=== PATIENT | female | born 1955 | race Caucasian/White ===

== ENCOUNTER 2023-08-06 12:55 | Inpatient (IN) | payer MEDICARE, OTHER ==
[~2023-08-06] VITALS: Ht 157.5 cm; Wt 54.2 kg
[~2023-08-06 12:55] MED LIST: DOXY100C82 PO
[2023-08-06] MEDS ORDERED: TRIA37.577 PO (13:06)
[2023-08-06] MEDS ORDERED: AMLODIPINE-BENAZ PO (13:06)
[2023-08-06 14:37] LABS: VENOUS PH 7.364 UNITS (7.330-7.430)
[2023-08-06 14:38] LABS: VENOUS BASE EXCESS 0.6 (-2.0-2.0); VENOUS HCO3 26.4 MMOL/L (23.0-27.0); VENOUS O2 SATURATION 68.3 % (60.0-80.0); VENOUS PARTIAL PRESSURE CO2 47.3 mmHg (38.0-50.0); VENOUS PARTIAL PRESSURE O2 36.8 mmHg (30.0-50.0); VENOUS STANDARD HCO3 24.4 MMOL/L; VENOUS TOTAL CO2 27.8 MMOL/L (24.0-28.0)
[2023-08-06] MEDS ORDERED: ISOVUE-370 76% 100ML VIAL As Ordered ONE (14:52)
[2023-08-06 15:00] LABS: BASO % 0.2 % (0.0-1.0); EOS # 0.1 10^3/uL (0.0-0.5); EOS % 2.6 % (0.0-3.0); HEMATOCRIT 32.9 % (36.0-47.0); HEMOGLOBIN 10.8 g/dl (12.0-15.5); LYMPH # 0.7 10^3/uL (1.5-5.0); LYMPH % 15.2 % (24.0-44.0); MEAN CORPUSCULAR HEMOGLOBIN 34.4 pg (27.0-33.0); MEAN CORPUSCULAR HGB CONC 32.8 g/dl (32.0-36.5); MEAN CORPUSCULAR VOLUME 104.8 fl (80.0-96.0); MONO # 0.5 10^3/uL (0.0-0.8); MONO % 11.5 % (2.0-8.0); NEUTROPHILS # 3.2 10^3/uL (1.5-8.5); NEUTROPHILS % 70.1 % (36.0-66.0); RED BLOOD COUNT 3.14 10^6/uL (4.00-5.40); WHITE BLOOD COUNT 4.5 10^3/uL (4.0-10.0)
[2023-08-06 15:03] LABS: C REACTIVE PROTEIN QUANTITATIV < 0.40 MG/DL (<1.0); CK-MB VALUE MASS < 1.0 NG/ML (<3.6); INR 0.99; PROTHROMBIN TIME 12.8 SECONDS (12.5-14.5)
[2023-08-06 15:05] LABS: ALBUMIN 3.1 G/DL (3.2-5.2); ALKALINE PHOSPHATASE 52 U/L (46-116); ALT/SGPT 19 U/L (7.0-40); AST/SGOT 22 U/L (<34); BILIRUBIN,DIRECT 0.2 MG/DL (<0.4); BILIRUBIN,TOTAL 0.5 MG/DL (0.3-1.2); BLOOD UREA NITROGEN 23 MG/DL (9-23); CALCIUM LEVEL 8.4 MG/DL (8.3-10.6); CARBON DIOXIDE LEVEL 26 MMOL/L (20-31); CHLORIDE LEVEL 105 MMOL/L (98-107); CREATININE FOR GFR 0.86 MG/DL (0.55-1.30); GLOMERULAR FILTRATION RATE > 60.0 (>45); GLUCOSE, FASTING 99 MG/DL (74-106); POTASSIUM SERUM 4.3 MMOL/L (3.5-5.1); SODIUM LEVEL 135 MMOL/L (136-145); TOTAL PROTEIN 5.8 G/DL (5.7-8.2)
[2023-08-06 15:06] LABS: THYROID STIMULATING HORMONE 1.039 uIU/ML (0.55-4.78)
[2023-08-06 15:07] LABS: THYROXINE (T4) 10.3 UG/DL (4.5-10.9)
[2023-08-06 15:10] LABS: HCG, SERUM QUALITATIVE NEGATIVE (NEGATIVE)
[2023-08-06 15:11] LABS: PROCALCITONIN 0.11 ng/ml
[2023-08-06 15:13] LABS: CPK CREATINE PHOSPHOKINASE 46 U/L (34-145); MB/CK RELATIVE INDEX 2.17 (< OR =4)
[2023-08-06 15:29] LABS: IMMUNOGLOBULIN E 12.2 IU/ML (0-378)
[2023-08-06 15:33] LABS: CK-MB VALUE MASS < 1.0 NG/ML (<3.6); CPK CREATINE PHOSPHOKINASE 60 U/L (34-145); MB/CK RELATIVE INDEX 1.66 (< OR =4)
[2023-08-06 16:10] VITALS: O2SAT 94
[2023-08-06] MEDS: IPRATROPIUM 0.5MG/ALBUTEROL 2.5MG INH SOL UD 3ML (DUONEB) NEB ONE (16:10)
[2023-08-06] MEDS: methylPREDNISolone 125MG 2ML VIAL IV ONE (16:29)
[2023-08-06] MEDS: cefTRIAXone SOD 1 GM in D5W MINI-BAG PLUS 50 ML IV ONE (16:31)
[2023-08-06] MEDS: AZITHROMYCIN INJ 500 MG, VIAL MATE ADAPTER 1 EACH in NS 250 ML IV ONE (17:18)
[2023-08-06] MEDS ORDERED: TRIA37.5 PO (17:31)
[2023-08-06] MEDS ORDERED: LOTR10CA PO (17:31)
[2023-08-06] MEDS ORDERED: HOME MED LIST COMPLETE! XX SCH (17:35)
[2023-08-06] MEDS: FUROSEMIDE 20MG/2ML VIAL IV ONE (18:19)
[2023-08-06 20:18] VITALS: BP 118/65; TEMP 97.9; O2SAT 96
[2023-08-06] MEDS: FLUCONAZOLE 100 MG TAB PO SCH (21:15)
[2023-08-06] MEDS: DYAZIDE 37.5/25 CAP (TRIAM/HCTZ) PO SCH (21:15)
[2023-08-07 04:24] VITALS: BP 117/56; TEMP 97.7; O2SAT 94
[2023-08-07 07:14] LABS: HEMATOCRIT 33.9 % (36.0-47.0); MEAN CORPUSCULAR HEMOGLOBIN 34.3 pg (27.0-33.0); MEAN CORPUSCULAR HGB CONC 32.4 g/dl (32.0-36.5); MEAN CORPUSCULAR VOLUME 105.6 fl (80.0-96.0); RED BLOOD COUNT 3.21 10^6/uL (4.00-5.40)
[2023-08-07 07:40] LABS: ALBUMIN 3.1 G/DL (3.2-5.2); ALKALINE PHOSPHATASE 48 U/L (46-116); ALT/SGPT 23 U/L (7.0-40); AST/SGOT 18 U/L (<34); BILIRUBIN,TOTAL 0.4 MG/DL (0.3-1.2); BLOOD UREA NITROGEN 28 MG/DL (9-23); CALCIUM LEVEL 8.2 MG/DL (8.3-10.6); CARBON DIOXIDE LEVEL 29 MMOL/L (20-31); CHLORIDE LEVEL 105 MMOL/L (98-107); CREATININE FOR GFR 0.83 MG/DL (0.55-1.30); GLOMERULAR FILTRATION RATE > 60.0 (>45); GLUCOSE, FASTING 146 MG/DL (74-106); POTASSIUM SERUM 4.9 MMOL/L (3.5-5.1); SODIUM LEVEL 138 MMOL/L (136-145); TOTAL PROTEIN 5.9 G/DL (5.7-8.2)
[2023-08-07] MEDS: ACETAMINOPHEN TAB 650MG DOSE (2X325MG) PO PRN (08:13)
[2023-08-07] MEDS ORDERED: amLODIPine 5 MG TAB PO SCH (09:00)
[2023-08-07] MEDS ORDERED: ENOXAPARIN 40MG/0.4ML SYRINGE (J1650 PER 10MG) SC SCH (09:00)
[2023-08-07 12:00] VITALS: BP 124/66; TEMP 97; O2SAT 94
[2023-08-07] MEDS: LORATADINE 10 MG TAB PO SCH (14:26)
[2023-08-07] MEDS: cefTRIAXone SOD 1 GM in D5W MINI-BAG PLUS 50 ML IV SCH (16:07)
[2023-08-07] MEDS: AZITHROMYCIN INJ 500 MG, VIAL MATE ADAPTER 1 EACH in NS 250 ML IV SCH (17:01)
[2023-08-07 20:00] VITALS: BP 123/65; TEMP 98.2; O2SAT 94
[2023-08-07] MEDS: amLODIPine 5 MG TAB PO SCH (20:42)
[2023-08-08] VITALS (13 sets, daily range): BP systolic 106–126; BP diastolic 57–66; TEMP 97.2–98.2; O2SAT 90–94
[2023-08-08] MEDS ORDERED: ROCURONIUM BROMIDE 50MG/5ML VIAL As Ordered ONE (07:04)
[2023-08-08] MEDS ORDERED: fentaNYL 100 MCG/2 ML INJECTION As Ordered ONE (07:04)
[2023-08-08] MEDS ORDERED: propofoL 200 MG/20 ML VIAL As Ordered ONE (07:04)
[2023-08-08] MEDS ORDERED: LIDOCAINE 2% 100MG/5ML SDV (FOR ANES.) As Ordered ONE (07:04)
[2023-08-08] MEDS: CETACAINE SPRAY 5GM As Ordered ONE (07:58)
[2023-08-08] MEDS: THROMBIN 5,000 UNITS VIAL As Ordered ONE (08:00)
[2023-08-08] MEDS: EPINEPHrine 1MG/10ML SYRINGE 1.5IN As Ordered ONE (08:00)
[2023-08-08] MEDS ORDERED: SUGAMMADEX SODIUM 500 MG/5 ML VIAL (BRIDION) As Ordered ONE (08:07)
[2023-08-08] MEDS ORDERED: ONDANSETRON 4MG 2ML VIAL As Ordered ONE (08:07)
[2023-08-08] MEDS ORDERED: ONDANSETRON 4MG 2ML VIAL IV PRN (08:30)
[2023-08-08] MEDS: LR 1,000 ML IV SCH (08:30)
[2023-08-08 10:13] LABS: HEMATOCRIT 35.7 % (36.0-47.0); HEMOGLOBIN 12.3 g/dl (12.0-15.5); MEAN CORPUSCULAR HEMOGLOBIN 36.2 pg (27.0-33.0); MEAN CORPUSCULAR HGB CONC 34.5 g/dl (32.0-36.5); PLATELET COUNT, AUTOMATED 119 10^3/uL (150-450); WHITE BLOOD COUNT 7.4 10^3/uL (4.0-10.0)
[2023-08-08 10:38] LABS: BLOOD UREA NITROGEN 23 MG/DL (9-23); CALCIUM LEVEL 8.1 MG/DL (8.3-10.6); CARBON DIOXIDE LEVEL 30 MMOL/L (20-31); CHLORIDE LEVEL 104 MMOL/L (98-107); CREATININE FOR GFR 0.65 MG/DL (0.55-1.30); GLOMERULAR FILTRATION RATE > 60.0 (>45); GLUCOSE, FASTING 106 MG/DL (74-106); POTASSIUM SERUM 4.4 MMOL/L (3.5-5.1); SODIUM LEVEL 136 MMOL/L (136-145)
[2023-08-08] MEDS: AZITHROMYCIN 250MG TABLET PO SCH (16:52)
[2023-08-08] MEDS ORDERED: MIRALAX *UNIT DOSE* 17GM PACKET PO PRN (21:05)
[2023-08-08] MEDS: DOCUSATE SODIUM 100MG CAPSULE PO SCH (22:23)
[2023-08-09 05:24] VITALS: BP 108/56; TEMP 97; O2SAT 95
[2023-08-09 07:07] LABS: HEMATOCRIT 34.1 % (36.0-47.0); HEMOGLOBIN 11.1 g/dl (12.0-15.5); MEAN CORPUSCULAR HEMOGLOBIN 34.8 pg (27.0-33.0); MEAN CORPUSCULAR HGB CONC 32.6 g/dl (32.0-36.5); MEAN CORPUSCULAR VOLUME 106.9 fl (80.0-96.0); RED BLOOD COUNT 3.19 10^6/uL (4.00-5.40); WHITE BLOOD COUNT 5.8 10^3/uL (4.0-10.0)
[2023-08-09] MEDS ORDERED: FLUC200T4 PO (11:00)
[2023-08-09] MEDS ORDERED: CEFD300CAP PO (11:00)
[2023-08-09 12:40] VITALS: BP 135/65; TEMP 98.1; O2SAT 96
[2023-08-09] MEDS: LACTOBACILLUS ACIDOPHILUS CAP (BACID) PO SCH (13:21)
[2023-08-13 21:02] LABS: COCCIDIODES AB IGG NEGATIVE (NEGATIVE); COCCIDIOIDES AB IGM NEGATIVE (NEGATIVE)
== END 2023-08-09 17:20 | disposition home health service (06) | DRG 193 ==
LOC: M ED 12:55 → M ED INP 17:56 → M MS5PR 20:10
PROVIDERS: ADMIT Hospitalist; ATTEND Internal Medicine
PROC: 0B9G8ZX Drainage of Left Upper Lung Lobe, Via Natural or Artificial Opening Endoscopic, Diagnostic (ICD-10-PCS; 2023-08-08)
PROC: 0B9F8ZX Drainage of Right Lower Lung Lobe, Via Natural or Artificial Opening Endoscopic, Diagnostic (ICD-10-PCS; principal; 2023-08-08 07:30)
DX: J18.9 Pneumonia, unspecified organism (principal); J96.01 Acute respiratory failure with hypoxia; B38.9 Coccidioidomycosis, unspecified; J98.11 Atelectasis; I10 Essential (primary) hypertension; D72.819 Decreased white blood cell count, unspecified; Z92.21 Personal history of antineoplastic chemotherapy; Z92.3 Personal history of irradiation; Z85.048 Personal history of other malignant neoplasm of rectum, rectosigmoid junction, and anus; Z79.899 Other long term (current) drug therapy

== ENCOUNTER → 2023-08-28 | Outpatient (CLI) | payer OTHER ==
[~2023-08-28] MED LIST changes: +AMLODIPINE-BENAZ PO; +CEFD300CAP PO; +FLUC200T4 PO; +LOTR10CA PO; +TRIA37.5 PO; +TRIA37.577 PO
== END ==
LOC: M PLALAB 10:32
PROVIDERS: ATTEND Internal Medicine Infectious Disease
DX: J90 Pleural effusion, not elsewhere classified (principal)

== ENCOUNTER → 2023-09-13 | Outpatient (CLI) | payer OTHER ==
[2023-09-18 02:58] LABS: CRYTPOCOCCUS SOURCE Serum
[2023-09-18 21:22] LABS: CRYPTOCOCCUS ANTIBODY SERUM <1:2 (<1:2)
[2023-09-19 19:23] LABS: FUNGITELL INTERPRETATION INDETERMINATE (NEGATIVE); FUNGITELL, SERUM 70 pg/mL (<60)
== END ==
LOC: M PLALAB 14:31
PROVIDERS: ATTEND Internal Medicine Infectious Disease
DX: R06.09 Other forms of dyspnea (principal)

== ENCOUNTER → 2023-10-30 | Outpatient (CLI) | payer OTHER ==
[2023-10-30 16:02] LABS: ABG BASE EXCESS 4.5 (-2.0-2.0); ABG HCO3 29.1 MMOL/L (22.0-26.0); ABG O2 SATURATION 98.4 % (95.0-99.0); ABG PARTIAL PRESSURE CO2 43.4 mmHg (35.0-45.0); ABG PARTIAL PRESSURE O2 132.5 mmHg (75.0-100.0); ABG STANDARD HCO3 28.5 MMOL/L. (22.0-26.0); ABG TOTAL CO2 30.4 MMOL/L (23.0-31.0); ABG pH (ARTERIAL) 7.444 UNITS (7.350-7.450)
== END ==
LOC: M RAD 15:18
PROVIDERS: ATTEND Internal Medicine Critical Care Medicine
DX: R06.00 Dyspnea, unspecified (principal); I51.7 Cardiomegaly; I70.0 Atherosclerosis of aorta; M41.9 Scoliosis, unspecified; Z96.89 Presence of other specified functional implants